=== PATIENT | female | born 1955 | race Two or more races ===

== ENCOUNTER 2017-04-23 17:54 | Emergency (ER) | payer MEDICAID ==
[~2017-04-23] VITALS: Ht 165.1 cm; Wt 79.4 kg
[~2017-04-23 17:54] MED LIST: KETO30CR; LEVO250T2; METR250T; PRED20TA PO
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
[2017-04-23] MEDS ORDERED: HYDROCODONE/APAP 10/325MG 1 EA TABLET ONE (18:52)
[2017-04-23] MEDS ORDERED: ONDANSETRON 4 MG TAB.RAPDIS ONE (18:52)
[2017-04-23] MEDS ORDERED: HYDROCODONE/APAP 10/325MG 1 EA TABLET PO ONE (19:00)
[2017-04-23] MEDS ORDERED: ONDANSETRON 4 MG TAB.RAPDIS SL ONE (19:00)
--- NOTE | 2017-04-23 19:10 | NUR ---
PT REPORT RECIVED FROM [facility], PT IN BED BED, PT AT BEDSIDE, PT STATES AFTER HER PAIN MEDICATION SHE IS FEELING BETTER THAN BEFORE, MD MADE AWARE WILL CONTINUE TO MONITOR.
[2017-04-23 20:03] VITALS: BP 130/84
== END 2017-04-23 20:04 | disposition home or self-care (01) ==
LOC: ER 17:55
DX: M79.604 Pain in right leg (principal); I10 Essential (primary) hypertension; M19.90 Unspecified osteoarthritis, unspecified site; Z98.890 Other specified postprocedural states
CPT/HCPCS: 93971; 99284; A4606; Q0162; Z7610